=== PATIENT | male | born 1945 | race Caucasian/White ===

== ENCOUNTER 2019-12-17 12:45 | Outpatient (CLI) | payer MEDICARE ==
--- NOTE | 2019-12-17 13:28 | MRI ---
MRI BRAIN NONCONTRAST: DATE: 12/17/2019 HISTORY: 74-year-old male with unsteady gait ICD-10: R 26.81 FINDINGS: There is no obstructive hydrocephalus. There is no midline shift or any other evidence of mass effect . There is no extra-axial fluid collection. There are mild chronic ischemic white matter changes due to microvascular atherosclerosis. There is otherwise no major intra-axial signal abnormality, rec ent hemorrhage, or restricted diffusion. IMPRESSION: 1) mild chronic ischemic white matter changes, typical for this age group. 2) otherwise negative
--- NOTE | 2019-12-17 14:05 | MRI ---
MRI Cervical spine without contrast: HISTORY: Neck pain with radiation of pain to right arm. Unsteady gait. COMPARISON: None FINDINGS: The craniocervical junction is unremarkable. No significant cord signal abnormality. Paravertebral soft tissues have a normal appearance and normal signal intensity. 2 closely adjacent round increased T1 weighted signal intensity nodules are seen in the left lobe of thyroid gland measuring 11 mm and 7 mm respectively. The larger thyroid nodule also demonstrates increased T2-weighted signal intensity. The smaller left lobe thyroid nodule is not visualized on T2- weighted imaging. C1-2:No significant stenosis. C2-3: There is no disc bulge or disc herniation. The central spinal canal and neural foramina are pat ent. C3-4: Minimal loss of intervertebral disc height. Broad-based disc osteophyte complex is present whic h effaces the ventral subarachnoid space. Mild facet hypertrophic changes are present. Mild bilateral neural foraminal narrowing is present. C4-5: Mild central disc protrusion is present. This results in effacement of ventral subarachnoid spa ce with encroachment on the spinal cord, but there is no significant mass effect on the spinal cord. Neural foramina are patent. Small subcentimeter rounded increased T1 and T2-weighted signal int ensity focus is seen in the C4 vertebral body which is likely attributable to a small hemangioma. C5-6: Mild disc osteophyte complex is present which narrows the ventral subarachnoid space. Mild face t hypertrophic changes are present. No significant neural foraminal narrowing is appreciated. C6-7: Mild disc osteophyte complex is present which mildly effaces the ventral subarachnoid space. Mi ld bilateral neural foraminal narrowing is present greater on the right. C7-T1: There is no disc bulge or disc herniation. The central spinal canal and neural foramina are pa tent. IMPRESSION: 1. Mild disc degenerative changes. No high-grade central canal or neural foraminal narrowing is pres ent. 2. Left lobe thyroid lesions likely attributable to colloid cysts. However, follow-up thyroid ultraso und may be helpful for further evaluation.
== END 2019-12-17 12:46 | disposition home or self-care (01) ==
LOC: TBSIIMAG 12:45
PROVIDERS: ATTEND Neurological Surgery
DX: M54.2 Cervicalgia (principal); R26.81 Unsteadiness on feet; M50.30 Other cervical disc degeneration, unspecified cervical region; E07.89 Other specified disorders of thyroid; I67.82 Cerebral ischemia
CPT/HCPCS: 70551; 72141